=== PATIENT | female | born 1990 | race Asian ===

== ENCOUNTER 2017-10-02 13:12 | Emergency (ER) | payer MEDICAID | END 2017-10-02 14:48 | disposition left against medical advice (07) | LOC: ED 13:12 | DX: Z53.21 Procedure and treatment not carried out due to patient leaving prior to being seen by health care provider (principal) ==

== ENCOUNTER 2017-11-28 00:32 | Emergency (ER) | payer MEDICAID ==
[~2017-11-28] VITALS: Ht 167.6 cm; Wt 71.2 kg
[2017-11-28 00:42] VITALS: Ht 167.6 cm; Wt 71.2 kg
[2017-11-28 05:35] VITALS: BP 112/71
== END 2017-11-28 05:35 | disposition home or self-care (01) ==
LOC: ED 00:32
DX: H10.212 Acute toxic conjunctivitis, left eye (principal)
CPT/HCPCS: J7030; V2632